=== PATIENT | female | born 1940 | race Caucasian/White ===

== ENCOUNTER 2017-05-25 09:48 | Day surgery (SDC) | payer MEDICARE, OTHER ==
[2017-05-25] MEDS ORDERED: Lactated Ringers 1,000 ML IV SCH (10:20)
[2017-05-25] MEDS ORDERED: Propofol 200 MG/20 ML SDV ONE ×2 (11:53→12:23)
[2017-05-25] MEDS ORDERED: Simethicone Drops 40 MG/0.6 ML 30 ML Bottle ONE (11:56)
[2017-05-25 13:00] VITALS: BP 145/61
--- NOTE | 2017-05-25 18:51 | OR ---
DATE OF SURGERY: 05/25/2017 REFERRING PROVIDER: Jennifer Su DO PRE-OPERATIVE DIAGNOSES: 1. Change in bowel habits with diarrhea for the past 2 months. The patient states symptoms are better the last few days. 2. Weight loss, unintentional. The patient did have positive lactoferrin and negative C. diff stool test. The patient's last colonoscopy in 2013 showed some diverticulosis. There is no family history of colon cancer. POST-OPERATIVE DIAGNOSES: 1. Normal appearing colon mucosa and mucosa of distal ileum. Random biopsies were taken from the distal ileum as well as randomly throughout the colon including the rectal area. 2. Mild left-sided diverticulosis, not acutely inflamed. 3. Mild internal hemorrhoids, not acutely inflamed. 4. Two small polyps removed. a. 2-mm polyp at 120 cm removed with cold forceps. b. 4-mm polyp at 85 cm removed with hot snare. PROCEDURE: Colonoscopy with polypectomy x2 (one using cold forceps, one using hot snare) and also random biopsies taken from distal ileum and randomly throughout the colon using cold forceps. SURGEON: Carlos Enrique Pugh M.D. ANESTHESIA: Monitored anesthesia care. BOWEL PREP: Good. Arcelia is a 77-year-old female who was brought to the endoscopy suite after discussing risks and benefits of the procedure. Informed consent was obtained for conscious sedation and colonoscopy with or without biopsy and/or polypectomy. We also discussed possibility of missed lesions. Pre-procedure exam was unremarkable. IV, oxygen, and monitors were placed. The patient was placed in the left lateral decubitus position. Sedation was administered and a digital rectal exam was performed and unremarkable except for some mild external hemorrhoidal skin tags, though not acutely inflamed. Colonoscope was passed into the rectum and slowly advanced all the way to the cecum. Cecum was viewed and photographed. Ileocecal valve was intubated and distal ileum appeared normal. Cold biopsy x2 bites taken from the distal ileum and sent for path. The colonoscope was slowly withdrawn and the mucosa was closely observed in a direct circumferential manner. Random biopsies were taken from the right colon, transverse colon, descending colon, sigmoid colon, and rectal areas. The ascending colon was remarkable for 2-mm polyp at 120 cm, removed with cold forceps. The transverse colon was remarkable for 4-mm polyp at 85 cm, removed with hot snare. The descending colon and sigmoid colon did reveal mild-to- moderate diverticulosis, not acutely inflamed. Retroflexion was performed and rectal mucosa was remarkable for some mild internal hemorrhoids. Scope was removed. The patient tolerated the procedure well. The patient was monitored until that baseline status. Discharge instructions were reviewed and the patient was discharged in good condition. COMPLICATIONS: None. TOTAL TIME: 32 minutes. ESTIMATED BLOOD LOSS: 1-2 mL. RECOMMENDATIONS/FOLLOW-UP: We will await results of the path report to determine ideal followup interval and the need for any further evaluation and/or treatment. I would like to kindly thank Jennifer Su DO for this referral. DMB: 05/25/2017 12:49:01 MODL: 05/25/2017 18:44:21 /[id number]
[2017-05-26] MEDS ORDERED: Lactated Ringers 1,000 ML IV SCH (06:00)
== END 2017-05-25 14:06 | disposition home or self-care (01) ==
LOC: VM.SDS 09:48
PROVIDERS: ATTEND Family Medicine
DX: K52.832 Lymphocytic colitis (principal); K63.5 Polyp of colon; K57.30 Diverticulosis of large intestine without perforation or abscess without bleeding; K64.8 Other hemorrhoids; K64.4 Residual hemorrhoidal skin tags; E87.6 Hypokalemia; J45.40 Moderate persistent asthma, uncomplicated; F33.0 Major depressive disorder, recurrent, mild; E78.5 Hyperlipidemia, unspecified; K21.9 Gastro-esophageal reflux disease without esophagitis; F41.1 Generalized anxiety disorder; Z79.82 Long term (current) use of aspirin; Z79.899 Other long term (current) drug therapy; Z88.0 Allergy status to penicillin; Z88.1 Allergy status to other antibiotic agents; Z88.2 Allergy status to sulfonamides; Z91.040 Latex allergy status; Z88.8 Allergy status to other drugs, medicaments and biological substances; Z90.49 Acquired absence of other specified parts of digestive tract
CPT/HCPCS: 00811; J2704; J7120

== ENCOUNTER 2021-07-19 19:25 | Emergency (ER) | payer MEDICARE, OTHER ==
[2021-07-19 20:33] LABS: CHLORIDE,CL 104 mmol/L (98-107); SODIUM,NA 137 mmol/L (136-145)
[2021-07-19 20:35] LABS: ANION GAP 13.1 mmol/L (5-15)
[2021-07-19] MEDS ORDERED: Take Home: Ondansetron 4 MG Tab.DIS, 5 Tab Pack PO ONE (20:45)
[2021-07-19 23:22] VITALS: BP 147/72; PULSE 73
== END 2021-07-19 21:15 | disposition home or self-care (01) ==
LOC: VM.ED 19:25
DX: K52.9 Noninfective gastroenteritis and colitis, unspecified (principal); E78.00 Pure hypercholesterolemia, unspecified; K21.9 Gastro-esophageal reflux disease without esophagitis; I25.10 Atherosclerotic heart disease of native coronary artery without angina pectoris; Z79.82 Long term (current) use of aspirin; Z79.899 Other long term (current) drug therapy; Z88.8 Allergy status to other drugs, medicaments and biological substances; Z88.2 Allergy status to sulfonamides
CPT/HCPCS: 36415; 80053; 85007; 85027; 99284; Q0162

== ENCOUNTER 2021-09-14 08:12 | Emergency (ER) | payer MEDICARE, OTHER ==
[2021-09-14 08:48] VITALS: BP 127/63; PULSE 65
[2021-09-14 08:53] LABS: CHLORIDE,CL 104 mmol/L (98-107); SODIUM,NA 141 mmol/L (136-145)
[2021-09-14 08:54] LABS: ESTIMATED GFR 48
== END 2021-09-14 09:28 | disposition home or self-care (01) ==
LOC: VM.ED 08:12
DX: R07.89 Other chest pain (principal); I25.10 Atherosclerotic heart disease of native coronary artery without angina pectoris; E78.00 Pure hypercholesterolemia, unspecified; Z79.82 Long term (current) use of aspirin; Z79.899 Other long term (current) drug therapy; Z88.0 Allergy status to penicillin; Z88.2 Allergy status to sulfonamides; Z88.1 Allergy status to other antibiotic agents
CPT/HCPCS: 71046; 80053; 82550; 83615; 84484; 85025; 86140; 93005; 99285-25

== ENCOUNTER 2022-09-22 01:28 | Emergency (ER) | payer MEDICARE, OTHER ==
[2022-09-22] MEDS ORDERED: Ondansetron 4 MG/2 ML SDV IVPUSH ONE (01:41)
[2022-09-22 02:00] LABS: BASOPHILS PERCENT AUTO 0.2 % (0.2-1.2); EOSINOPHILS ABSOLUTE AUTO 0.1 x10^3/uL (0.0-0.5); EOSINOPHILS PERCENT AUTO 1.1 % (0.0-4.0); HEMATOCRIT 28.2 % (33.0-47.0); HEMOGLOBIN 9.8 g/dL (12.0-16.0); LYMPHOCYTES ABSOLUTE AUTO 0.6 x10^3/uL (1.0-4.8); LYMPHOCYTES PERCENT AUTO 14.3 % (25.0-50.0); MEAN CORPUSCULAR HEMOGLOBIN 35.4 pg (26.0-32.0); MEAN CORPUSCULAR HGB CONC 34.8 g/dL (32.0-36.0); MEAN CORPUSCULAR VOLUME 101.8 fL (78.0-93.0); MONOCYTES ABSOLUTE AUTO 0.6 x10^3/uL (0.0-0.8); MONOCYTES PERCENT AUTO 13.1 % (2.0-11.0); NEUTROPHILS ABSOLUTE AUTO 3.2 x10^3/uL (1.8-7.7); NEUTROPHILS PERCENT AUTO 71.3 % (50.0-80.0); PLATELET COUNT,PLT 183 x10^3/uL (130-400); RED BLOOD CELL COUNT 2.77 x10^6/uL (4.00-5.50); WHITE BLOOD CELL COUNT,WBC 4.4 x10^3/uL (4.0-10.0)
[2022-09-22 02:19] LABS: PROTHROMBIN TIME 10.7 SEC (9.5-12.2); PTT,PARTIAL THROMBOPLSTIN TIME 21.6 SEC (23.6-33.6)
[2022-09-22 02:21] LABS: A/G RATIO 1.52; ALANINE AMINOTRANSFERASE,ALT 38 U/L (14-59); ALBUMIN 3.2 g/dL (3.4-5.0); ALKALINE PHOSPHATASE 76 U/L (46-116); AMYLASE 124 U/L (25-115); ASPARTATE AMNIOTRANSFERASE,AST 26 U/L (15-37); BILIRUBIN TOTAL 0.4 mg/dL (0.2-1.0); BLOOD UREA NITROGEN,BUN 23 mg/dL (7-18); CALCIUM 9.4 mg/dL (8.5-10.1); CARBON DIOXIDE,CO2 30 mmol/L (21-32); CHLORIDE,CL 105 mmol/L (98-107); CREATININE 0.9 mg/dL (0.55-1.02); GLUCOSE RANDOM 114 mg/dL (70-99); LIPASE 364 U/L (73-393); MAGNESIUM 1.8 mg/dL (1.8-2.4); POTASSIUM,K 3.7 mmol/L (3.5-5.1); PROTEIN TOTAL,TP 5.3 g/dL (6.4-8.2); SODIUM,NA 144 mmol/L (136-145)
[2022-09-22 02:24] LABS: ANION GAP 12.7 mmol/L (5-15); ESTIMATED GFR 64 mL/min (>=60); LACTIC ACID 1.1 mmol/L (0.4-2.0)
[2022-09-22] MEDS ORDERED: Metoclopramide 10 MG/2 ML SDV IVPUSH ONE (02:34)
[2022-09-22] MEDS ORDERED: Take Home: Ondansetron 4 MG Tab.DIS, 5 Tab Pack PO ONE (02:53)
[2022-09-22 03:41] VITALS: BP 143/80; PULSE 86
== END 2022-09-22 03:17 | disposition home or self-care (01) ==
LOC: VM.ED 01:28
DX: R11.2 Nausea with vomiting, unspecified (principal); R53.83 Other fatigue; I25.10 Atherosclerotic heart disease of native coronary artery without angina pectoris; E78.00 Pure hypercholesterolemia, unspecified; J45.909 Unspecified asthma, uncomplicated; K21.9 Gastro-esophageal reflux disease without esophagitis; Z90.49 Acquired absence of other specified parts of digestive tract; Z88.1 Allergy status to other antibiotic agents; Z88.0 Allergy status to penicillin; Z91.040 Latex allergy status; Z88.2 Allergy status to sulfonamides; Z91.048 Other nonmedicinal substance allergy status; Z79.82 Long term (current) use of aspirin; Z79.899 Other long term (current) drug therapy
CPT/HCPCS: 36415; 80053; 82150; 83605; 83690; 83735; 85025; 85610; 85730; 96374; 96375; 99284; 99284-25; J2405; J2765; Q0162

== ENCOUNTER 2022-09-26 12:24 | Inpatient (IN) | payer MEDICARE, OTHER ==
[2022-09-26] MEDS ORDERED: Iopamidol 612 MG/ML 100 ML Bottle IVPUSH ONE (12:45)
[2022-09-26] MEDS ORDERED: Lactated Ringers 1,000 ML IV ONE (12:47)
[2022-09-26 12:49] LABS: BASOPHILS PERCENT AUTO 0.2 % (0.2-1.2); EOSINOPHILS ABSOLUTE AUTO 0.1 x10^3/uL (0.0-0.5); EOSINOPHILS PERCENT AUTO 1.7 % (0.0-4.0); HEMATOCRIT 27.3 % (33.0-47.0); HEMOGLOBIN 9.5 g/dL (12.0-16.0); IMMATURE GRAN ABSOLUTE AUTO 0.01 x10^3/uL (0.00-0.07); LYMPHOCYTES ABSOLUTE AUTO 0.9 x10^3/uL (1.0-4.8); MEAN CORPUSCULAR HEMOGLOBIN 35.6 pg (26.0-32.0); MEAN CORPUSCULAR HGB CONC 34.8 g/dL (32.0-36.0); MEAN CORPUSCULAR VOLUME 102.2 fL (78.0-93.0); MONOCYTES ABSOLUTE AUTO 0.4 x10^3/uL (0.0-0.8); MONOCYTES PERCENT AUTO 9.9 % (2.0-11.0); NEUTROPHILS ABSOLUTE AUTO 2.8 x10^3/uL (1.8-7.7); PLATELET COUNT,PLT 198 x10^3/uL (130-400); RED BLOOD CELL COUNT 2.67 x10^6/uL (4.00-5.50); WHITE BLOOD CELL COUNT,WBC 4.1 x10^3/uL (4.0-10.0)
[2022-09-26 13:20] LABS: A/G RATIO 1.45; ALANINE AMINOTRANSFERASE,ALT 34 U/L (14-59); ALBUMIN 2.9 g/dL (3.4-5.0); ALKALINE PHOSPHATASE 71 U/L (46-116); ASPARTATE AMNIOTRANSFERASE,AST 20 U/L (15-37); BILIRUBIN TOTAL 0.6 mg/dL (0.2-1.0); BLOOD UREA NITROGEN,BUN 25 mg/dL (7-18); C-REACTIVE PROTEIN 0.3 mg/dL (<=0.9); CALCIUM 8.1 mg/dL (8.5-10.1); CARBON DIOXIDE,CO2 22 mmol/L (21-32); CHLORIDE,CL 105 mmol/L (98-107); CREATININE 0.7 mg/dL (0.55-1.02); GLUCOSE RANDOM 79 mg/dL (70-99); LIPASE 44 U/L (73-393); POTASSIUM,K 3.8 mmol/L (3.5-5.1); PROTEIN TOTAL,TP 4.9 g/dL (6.4-8.2); SODIUM,NA 142 mmol/L (136-145)
[2022-09-26 13:21] LABS: ANION GAP 18.8 mmol/L (5-15); ESTIMATED GFR 87 mL/min (>=60)
[2022-09-26 17:19] LABS: APPEARANCE,URINE CLEAR (CLEAR); BILIRUBIN,URINE MODERATE (NEGATIVE); COLOR,URINE YELLOW (YELLOW); GLUCOSE,URINE NEGATIVE (NEGATIVE); KETONES,URINE 80 mg/dL (NEGATIVE); LEUKOCYTE ESTERASE,URINE NEGATIVE (NEGATIVE); NITRITE,URINE NEGATIVE (NEGATIVE); OCCULT BLOOD,URINE NEGATIVE (NEGATIVE); PH,URINE 5.5 (5.0-8.0); PROTEIN,URINE 100 mg/dL (NEGATIVE)
[2022-09-26 17:20] LABS: BACTERIA,URINE RARE /HPF (NOT SEEN); HYALINE CASTS,URINE FEW; MUCUS,URINE FEW /LPF (NOT SEEN); RBC,URINE 0-5 /HPF (NOT SEEN); SQUAMOUS EPITHELIAL CELLS,UR OCCASIONAL /HPF (NOT SEEN); WBC,URINE 0-5 /HPF (NOT SEEN)
[2022-09-26] MEDS ORDERED: Albuterol HFA 18 Gm Inhaler INH PRN (18:05)
[2022-09-26] MEDS ORDERED: Triamcinolone Acetonide 0.1% Crm 15 GM Tube TOP PRN (18:05)
[2022-09-26] MEDS ORDERED: Acetaminophen 325 MG Tab PO PRN (18:11)
[2022-09-26] MEDS: Polyethylene Glycol 3350 Powder 17 GM Packet PO SCH ×5 (19:58→22:45)
[2022-09-26] MEDS: Ondansetron 4 MG Tab.DIS PO PRN (20:00)
[2022-09-26] MEDS: hydrALAZINE 20 MG/ML SDV IVPUSH PRN (20:01)
[2022-09-26] MEDS: Sodium Chloride 0.9% 1,000 ML IV SCH (20:12)
[2022-09-26] MEDS: Sodium Phosphate,Monobasic/Sodium Phosphate,Dibasic Enema 133 ML Bottle RECTAL SCH (20:40)
[2022-09-26] MEDS: Enoxaparin 40 MG/0.4 ML Syringe SUBCUT SCH (21:12)
[2022-09-26] MEDS: Docusate Sodium 100 MG Cap PO PRN (21:13)
[2022-09-26] MEDS: busPIRone 15 MG Tab PO SCH (21:13)
[2022-09-26] MEDS: Celecoxib 100 MG Cap PO SCH (21:13)
[2022-09-26] MEDS: Fluticasone Propionate Nasal Spray 9.9 ML BOTTLE NASBOTH SCH (21:14)
[2022-09-27] MEDS: Ondansetron 4 MG Tab.DIS PO PRN ×2 (05:19→20:57)
[2022-09-27] MEDS: Sodium Phosphate,Monobasic/Sodium Phosphate,Dibasic Enema 133 ML Bottle RECTAL SCH (05:39)
[2022-09-27] MEDS: hydrALAZINE 20 MG/ML SDV IVPUSH PRN ×2 (05:50→18:26)
[2022-09-27 06:57] LABS: HEMATOCRIT 29.2 % (33.0-47.0); HEMOGLOBIN 10.1 g/dL (12.0-16.0); MEAN CORPUSCULAR HEMOGLOBIN 35.1 pg (26.0-32.0); MEAN CORPUSCULAR HGB CONC 34.6 g/dL (32.0-36.0); MEAN CORPUSCULAR VOLUME 101.4 fL (78.0-93.0); RED BLOOD CELL COUNT 2.88 x10^6/uL (4.00-5.50); WHITE BLOOD CELL COUNT,WBC 5.4 x10^3/uL (4.0-10.0)
[2022-09-27] MEDS: Pantoprazole 40 MG Tab.CR PO SCH (06:57)
[2022-09-27 07:18] LABS: A/G RATIO 1.26; ALBUMIN 2.9 g/dL (3.4-5.0); ANION GAP 15.3 mmol/L (5-15); BILIRUBIN TOTAL 0.5 mg/dL (0.2-1.0); CALCIUM 8.1 mg/dL (8.5-10.1); CREATININE 0.6 mg/dL (0.55-1.02); EST CRCL DRUG DOSING (CG) 60.06 mL/min; POTASSIUM,K 3.3 mmol/L (3.5-5.1); PROTEIN TOTAL,TP 5.2 g/dL (6.4-8.2)
[2022-09-27] MEDS ORDERED: Flumazenil 0.1 MG/ML 5 ML MDV IVPUSH PRN (07:59)
[2022-09-27] MEDS: Metoclopramide 10 MG/2 ML SDV IVPUSH PRN ×2 (10:19→18:24)
[2022-09-27] MEDS: buPROPion 150 MG Tab.ER PO SCH (10:28)
[2022-09-27] MEDS: Montelukast 10 MG Tab PO SCH (10:32)
[2022-09-27] MEDS: Citalopram 20 MG Tab PO SCH (10:32)
[2022-09-27] MEDS: Aspirin 81 MG Tab.EC PO SCH (10:32)
[2022-09-27] MEDS: Docusate Sodium 100 MG Cap PO PRN ×2 (10:33→20:58)
[2022-09-27] MEDS: busPIRone 15 MG Tab PO SCH ×2 (10:33→20:58)
[2022-09-27] MEDS: Cyanocobalamin (Vitamin B12) 1,000 MCG Tab PO SCH ×2 (10:33)
[2022-09-27] MEDS: Fluticasone Propionate Nasal Spray 9.9 ML BOTTLE NASBOTH SCH ×2 (10:34→20:59)
[2022-09-27] MEDS: Celecoxib 100 MG Cap PO SCH ×3 (10:34→21:03)
[2022-09-27] MEDS: Sodium Chloride 0.9% 1,000 ML IV SCH ×2 (10:35→22:29)
[2022-09-27] MEDS: Polyethylene Glycol 3350 Powder 17 GM Packet PO SCH ×6 (10:56→19:53)
[2022-09-27] MEDS: LORazepam 2 MG/ML SDV IVPUSH PRN (14:25)
[2022-09-27] MEDS: Mineral Oil 133 ML BOTTLE RECTAL SCH (18:23)
[2022-09-27] MEDS: Enoxaparin 40 MG/0.4 ML Syringe SUBCUT SCH (20:57)
[2022-09-28] MEDS: LORazepam 2 MG/ML SDV IVPUSH PRN (02:20)
[2022-09-28] MEDS: hydrALAZINE 20 MG/ML SDV IVPUSH PRN ×3 (06:44→20:11)
[2022-09-28] MEDS: Mineral Oil 133 ML BOTTLE RECTAL SCH ×2 (06:44→18:52)
[2022-09-28] MEDS: Pantoprazole 40 MG Tab.CR PO SCH (06:44)
[2022-09-28 07:05] LABS: A/G RATIO 1.53; ALBUMIN 2.6 g/dL (3.4-5.0); ANION GAP 13.2 mmol/L (5-15); BILIRUBIN TOTAL 0.3 mg/dL (0.2-1.0); CALCIUM 7.6 mg/dL (8.5-10.1); CREATININE 0.6 mg/dL (0.55-1.02); EST CRCL DRUG DOSING (CG) 61.77 mL/min; POTASSIUM,K 3.2 mmol/L (3.5-5.1); PROTEIN TOTAL,TP 4.3 g/dL (6.4-8.2)
[2022-09-28] MEDS ORDERED: Potassium Bicarbonate/Cit Ac 10 MEQ Effervescent Tab PO ONE (08:45)
[2022-09-28] MEDS: busPIRone 15 MG Tab PO SCH ×2 (10:31→21:46)
[2022-09-28] MEDS: Montelukast 10 MG Tab PO SCH (10:31)
[2022-09-28] MEDS: Celecoxib 100 MG Cap PO SCH ×2 (10:31→21:46)
[2022-09-28] MEDS: Fluticasone Propionate Nasal Spray 9.9 ML BOTTLE NASBOTH SCH ×2 (10:32→21:46)
[2022-09-28] MEDS: Citalopram 20 MG Tab PO SCH (10:32)
[2022-09-28] MEDS: Cyanocobalamin (Vitamin B12) 1,000 MCG Tab PO SCH (10:32)
[2022-09-28] MEDS: Lactulose Soln 10 GM/15 ML 30 ML UD Cup PO SCH ×2 (10:32→21:46)
[2022-09-28] MEDS: buPROPion 150 MG Tab.ER PO SCH (10:32)
[2022-09-28] MEDS: Aspirin 81 MG Tab.EC PO SCH (10:32)
[2022-09-28] MEDS: Sodium Chloride 0.9% 1,000 ML IV SCH (15:01)
[2022-09-28] MEDS: Ondansetron 4 MG/2 ML SDV IVPUSH PRN ×2 (15:04→20:10)
[2022-09-28] MEDS: Metoclopramide 10 MG/2 ML SDV IVPUSH PRN ×2 (16:07→22:01)
[2022-09-28] MEDS: Lactated Ringers 1,000 ML IV SCH (20:10)
[2022-09-28] MEDS: Enoxaparin 40 MG/0.4 ML Syringe SUBCUT SCH (22:01)
[2022-09-29] MEDS: hydrALAZINE 20 MG/ML SDV IVPUSH PRN ×3 (00:01→20:24)
[2022-09-29] MEDS: Ondansetron 4 MG/2 ML SDV IVPUSH PRN (00:01)
[2022-09-29] MEDS ORDERED: Acetaminophen 650 MG Supp RECTAL ONE (00:53)
[2022-09-29] MEDS: Lactated Ringers 1,000 ML IV SCH (03:52)
[2022-09-29] MEDS: Mineral Oil 133 ML BOTTLE RECTAL SCH ×2 (05:32→18:00)
[2022-09-29] MEDS: Pantoprazole 40 MG Tab.CR PO SCH (06:24)
[2022-09-29 07:20] LABS: A/G RATIO 1.53; ALBUMIN 2.6 g/dL (3.4-5.0); ANION GAP 14.2 mmol/L (5-15); BILIRUBIN TOTAL 0.3 mg/dL (0.2-1.0); CALCIUM 8.2 mg/dL (8.5-10.1); CREATININE 0.8 mg/dL (0.55-1.02); EST CRCL DRUG DOSING (CG) 45.81 mL/min; POTASSIUM,K 3.2 mmol/L (3.5-5.1); PROTEIN TOTAL,TP 4.3 g/dL (6.4-8.2)
[2022-09-29] MEDS: LORazepam 2 MG/ML SDV IVPUSH PRN ×3 (09:30→22:55)
[2022-09-29] MEDS: D5 1/2 NS w/ 20 mEq/L KCl 1,000 ML IV SCH ×2 (09:39→18:02)
[2022-09-29] MEDS: Fluticasone Propionate Nasal Spray 9.9 ML BOTTLE NASBOTH SCH ×2 (11:36→22:33)
[2022-09-29] MEDS ORDERED: Acetaminophen 650 MG Supp RECTAL PRN (12:33)
[2022-09-29] MEDS: Enoxaparin 40 MG/0.4 ML Syringe SUBCUT SCH (21:18)
[2022-09-29] MEDS ORDERED: Labetalol 20 MG/4 ML Syringe IVPUSH ONE (21:27)
[2022-09-30] MEDS: hydrALAZINE 20 MG/ML SDV IVPUSH PRN ×4 (04:47→20:57)
[2022-09-30] MEDS: D5 1/2 NS w/ 20 mEq/L KCl 1,000 ML IV SCH ×2 (05:54→21:03)
[2022-09-30] MEDS: Pantoprazole 40 MG Tab.CR PO SCH ×2 (06:17→06:19)
[2022-09-30] MEDS: Mineral Oil 133 ML BOTTLE RECTAL SCH ×2 (06:18→18:06)
[2022-09-30 06:47] LABS: HEMATOCRIT 29.7 % (33.0-47.0); HEMOGLOBIN 9.9 g/dL (12.0-16.0); MEAN CORPUSCULAR HEMOGLOBIN 35.1 pg (26.0-32.0); MEAN CORPUSCULAR HGB CONC 33.3 g/dL (32.0-36.0); MEAN CORPUSCULAR VOLUME 105.3 fL (78.0-93.0); RED BLOOD CELL COUNT 2.82 x10^6/uL (4.00-5.50); WHITE BLOOD CELL COUNT,WBC 6.9 x10^3/uL (4.0-10.0)
[2022-09-30 07:12] LABS: A/G RATIO 1.25; ALBUMIN 2.5 g/dL (3.4-5.0); ANION GAP 11.6 mmol/L (5-15); BILIRUBIN TOTAL 0.5 mg/dL (0.2-1.0); CALCIUM 7.9 mg/dL (8.5-10.1); CREATININE 0.6 mg/dL (0.55-1.02); EST CRCL DRUG DOSING (CG) 61.92 mL/min; POTASSIUM,K 3.6 mmol/L (3.5-5.1); PROTEIN TOTAL,TP 4.5 g/dL (6.4-8.2)
[2022-09-30] MEDS: Metoclopramide 10 MG/2 ML SDV IVPUSH SCH ×3 (09:16→18:38)
[2022-09-30] MEDS: Fluticasone Propionate Nasal Spray 9.9 ML BOTTLE NASBOTH SCH ×2 (09:23→20:53)
[2022-09-30] MEDS ORDERED: Magnesium Sulfate/Water 2 GM in Premix Bag 1 BAG IV ONE (12:15)
[2022-09-30] MEDS: Lactulose Soln 10 GM/15 ML 15 ML UD Cup PO SCH ×2 (13:45→20:53)
[2022-09-30] MEDS: LORazepam 2 MG/ML SDV IVPUSH PRN ×2 (15:55→22:15)
[2022-09-30] MEDS: Enoxaparin 40 MG/0.4 ML Syringe SUBCUT SCH (21:57)
[2022-10-01] MEDS: Metoclopramide 10 MG/2 ML SDV IVPUSH SCH ×4 (01:51→18:28)
[2022-10-01] MEDS: Pantoprazole 40 MG Tab.CR PO SCH (06:24)
[2022-10-01] MEDS: Mineral Oil 133 ML BOTTLE RECTAL SCH ×2 (06:25→18:27)
[2022-10-01 08:32] LABS: A/G RATIO 1.25; ALBUMIN 2.5 g/dL (3.4-5.0); BILIRUBIN TOTAL 0.6 mg/dL (0.2-1.0); C-REACTIVE PROTEIN 2.02 mg/dL (<=0.30); CALCIUM 7.9 mg/dL (8.5-10.1); CREATININE 0.6 mg/dL (0.55-1.02); EST CRCL DRUG DOSING (CG) 62.66 mL/min; POTASSIUM,K 3.6 mmol/L (3.5-5.1); PROTEIN TOTAL,TP 4.5 g/dL (6.4-8.2)
[2022-10-01 08:33] LABS: ANION GAP 10.6 mmol/L (5-15)
[2022-10-01] MEDS: Fluticasone Propionate Nasal Spray 9.9 ML BOTTLE NASBOTH SCH ×2 (09:13→21:41)
[2022-10-01] MEDS: Lactulose Soln 10 GM/15 ML 15 ML UD Cup PO SCH ×2 (09:13→21:41)
[2022-10-01] MEDS: Magnesium Chloride 64 MG Tab.ER PO SCH (09:13)
[2022-10-01] MEDS: Lisinopril 5 MG Tab PO SCH (09:14)
[2022-10-01] MEDS: LORazepam 2 MG/ML SDV IVPUSH PRN ×3 (09:14→22:12)
[2022-10-01] MEDS ORDERED: Mineral Oil 133 ML BOTTLE RECTAL ONE (10:05)
[2022-10-01] MEDS: D5 1/2 NS w/ 20 mEq/L KCl 1,000 ML IV SCH (12:36)
[2022-10-01] MEDS: Ondansetron 4 MG/2 ML SDV IVPUSH PRN (19:47)
[2022-10-01] MEDS: hydrALAZINE 20 MG/ML SDV IVPUSH PRN (20:15)
[2022-10-01] MEDS: Enoxaparin 40 MG/0.4 ML Syringe SUBCUT SCH (21:41)
[2022-10-02] MEDS: Metoclopramide 10 MG/2 ML SDV IVPUSH SCH ×4 (00:11→19:03)
[2022-10-02] MEDS: Ondansetron 4 MG/2 ML SDV IVPUSH PRN (02:22)
[2022-10-02] MEDS: LORazepam 2 MG/ML SDV IVPUSH PRN ×2 (02:30→17:46)
[2022-10-02] MEDS: D5 1/2 NS w/ 20 mEq/L KCl 1,000 ML IV SCH ×2 (02:41→16:40)
[2022-10-02] MEDS: hydrALAZINE 20 MG/ML SDV IVPUSH PRN ×2 (05:31→21:07)
[2022-10-02] MEDS: Mineral Oil 133 ML BOTTLE RECTAL SCH ×2 (05:36→17:56)
[2022-10-02] MEDS: Pantoprazole 40 MG Tab.CR PO SCH (07:40)
[2022-10-02 08:21] LABS: BASOPHILS PERCENT AUTO 0.1 % (0.2-1.2); EOSINOPHILS PERCENT AUTO 0.1 % (0.0-4.0); HEMATOCRIT 31.9 % (33.0-47.0); HEMOGLOBIN 10.8 g/dL (12.0-16.0); IMMATURE GRAN ABSOLUTE AUTO 0.02 x10^3/uL (0.00-0.07); LYMPHOCYTES ABSOLUTE AUTO 0.6 x10^3/uL (1.0-4.8); LYMPHOCYTES PERCENT AUTO 6.3 % (25.0-50.0); MEAN CORPUSCULAR HGB CONC 33.9 g/dL (32.0-36.0); MEAN CORPUSCULAR VOLUME 103.2 fL (78.0-93.0); MONOCYTES ABSOLUTE AUTO 0.8 x10^3/uL (0.0-0.8); MONOCYTES PERCENT AUTO 7.8 % (2.0-11.0); NEUTROPHILS ABSOLUTE AUTO 8.2 x10^3/uL (1.8-7.7); NEUTROPHILS PERCENT AUTO 85.5 % (50.0-80.0); PLATELET COUNT,PLT 203 x10^3/uL (130-400); RED BLOOD CELL COUNT 3.09 x10^6/uL (4.00-5.50); WHITE BLOOD CELL COUNT,WBC 9.6 x10^3/uL (4.0-10.0)
[2022-10-02 08:35] LABS: CALCIUM 8.2 mg/dL (8.5-10.1); CREATININE 0.7 mg/dL (0.55-1.02); EST CRCL DRUG DOSING (CG) 54.75 mL/min; POTASSIUM,K 3.8 mmol/L (3.5-5.1)
[2022-10-02 08:36] LABS: ANION GAP 13.8 mmol/L (5-15)
[2022-10-02] MEDS: Lactulose Soln 10 GM/15 ML 15 ML UD Cup PO SCH ×2 (10:40→21:01)
[2022-10-02] MEDS: Magnesium Chloride 64 MG Tab.ER PO SCH (10:40)
[2022-10-02] MEDS: Lisinopril 5 MG Tab PO SCH (10:40)
[2022-10-02] MEDS: Fluticasone Propionate Nasal Spray 9.9 ML BOTTLE NASBOTH SCH ×2 (10:54→21:01)
[2022-10-02 20:32] LABS: APPEARANCE,URINE CLEAR (CLEAR); BILIRUBIN,URINE NEGATIVE (NEGATIVE); COLOR,URINE YELLOW (YELLOW); GLUCOSE,URINE NEGATIVE (NEGATIVE); KETONES,URINE NEGATIVE (NEGATIVE); LEUKOCYTE ESTERASE,URINE NEGATIVE (NEGATIVE); NITRITE,URINE NEGATIVE (NEGATIVE); OCCULT BLOOD,URINE TRACE-INTACT (NEGATIVE); PROTEIN,URINE TRACE mg/dL (NEGATIVE); UROBILINOGEN,URINE 0.2 EU/dL (0.2)
[2022-10-02 20:37] LABS: BACTERIA,URINE NOT SEEN /HPF (NOT SEEN); MUCUS,URINE OCCASIONAL /LPF (NOT SEEN); RBC,URINE 0-5 /HPF (NOT SEEN); SQUAMOUS EPITHELIAL CELLS,UR RARE /HPF (NOT SEEN); WBC,URINE 0-5 /HPF (NOT SEEN)
[2022-10-02] MEDS: Enoxaparin 40 MG/0.4 ML Syringe SUBCUT SCH (22:00)
[2022-10-03] MEDS: Metoclopramide 10 MG/2 ML SDV IVPUSH SCH ×4 (01:06→18:03)
[2022-10-03] MEDS: D5 1/2 NS w/ 20 mEq/L KCl 1,000 ML IV SCH (05:33)
[2022-10-03] MEDS: Mineral Oil 133 ML BOTTLE RECTAL SCH ×2 (05:34→18:13)
[2022-10-03] MEDS: Pantoprazole 40 MG Tab.CR PO SCH (06:04)
[2022-10-03 07:00] LABS: BASOPHILS PERCENT AUTO 0.1 % (0.2-1.2); EOSINOPHILS ABSOLUTE AUTO 0.1 x10^3/uL (0.0-0.5); EOSINOPHILS PERCENT AUTO 0.8 % (0.0-4.0); HEMATOCRIT 32.2 % (33.0-47.0); HEMOGLOBIN 10.6 g/dL (12.0-16.0); IMMATURE GRAN ABSOLUTE AUTO 0.02 x10^3/uL (0.00-0.07); LYMPHOCYTES ABSOLUTE AUTO 0.8 x10^3/uL (1.0-4.8); LYMPHOCYTES PERCENT AUTO 10.9 % (25.0-50.0); MEAN CORPUSCULAR HEMOGLOBIN 34.6 pg (26.0-32.0); MEAN CORPUSCULAR HGB CONC 32.9 g/dL (32.0-36.0); MEAN CORPUSCULAR VOLUME 105.2 fL (78.0-93.0); MONOCYTES ABSOLUTE AUTO 0.9 x10^3/uL (0.0-0.8); MONOCYTES PERCENT AUTO 11.7 % (2.0-11.0); NEUTROPHILS ABSOLUTE AUTO 5.8 x10^3/uL (1.8-7.7); NEUTROPHILS PERCENT AUTO 76.2 % (50.0-80.0); PLATELET COUNT,PLT 193 x10^3/uL (130-400); RED BLOOD CELL COUNT 3.06 x10^6/uL (4.00-5.50); WHITE BLOOD CELL COUNT,WBC 7.5 x10^3/uL (4.0-10.0)
[2022-10-03 07:04] LABS: A/G RATIO 1.19; ALBUMIN 2.5 g/dL (3.4-5.0); BILIRUBIN TOTAL 0.4 mg/dL (0.2-1.0); C-REACTIVE PROTEIN 1.19 mg/dL (<=0.30); CALCIUM 8.3 mg/dL (8.5-10.1); CREATININE 0.7 mg/dL (0.55-1.02); EST CRCL DRUG DOSING (CG) 51.9 mL/min; MAGNESIUM 1.9 mg/dL (1.8-2.4); POTASSIUM,K 3.8 mmol/L (3.5-5.1); PROTEIN TOTAL,TP 4.6 g/dL (6.4-8.2)
[2022-10-03 07:07] LABS: ANION GAP 8.8 mmol/L (5-15)
[2022-10-03] MEDS ORDERED: Ondansetron 4 MG/2 ML SDV IVPUSH PRN (08:32)
[2022-10-03] MEDS: hydrALAZINE 20 MG/ML SDV IVPUSH PRN ×2 (09:27→18:05)
[2022-10-03] MEDS: Magnesium Chloride 64 MG Tab.ER PO SCH (09:30)
[2022-10-03] MEDS: Lisinopril 5 MG Tab PO SCH (09:30)
[2022-10-03] MEDS: Lactulose Soln 10 GM/15 ML 15 ML UD Cup PO SCH ×2 (09:30→20:49)
[2022-10-03] MEDS: Fluticasone Propionate Nasal Spray 9.9 ML BOTTLE NASBOTH SCH ×2 (09:31→20:59)
[2022-10-03] MEDS ORDERED: Furosemide 20 MG/2 ML VIAL IV SCH (15:15)
[2022-10-03] MEDS ORDERED: Iopamidol 612 MG/ML 30 ML SDV PO ONE (15:16)
[2022-10-03] MEDS ORDERED: Iopamidol 612 MG/ML 100 ML Bottle IVPUSH ONE (15:16)
[2022-10-03] MEDS: Mineral Oil/Petrolatum Ophth Oint 3.5 GM Tube EYEBOTH SCH ×2 (16:00→20:53)
[2022-10-03] MEDS: Ketotifen 0.025% Ophth Soln 5 ML Bottle EYELF SCH ×2 (18:09→20:50)
[2022-10-03] MEDS: Enoxaparin 40 MG/0.4 ML Syringe SUBCUT SCH (20:49)
[2022-10-03] MEDS: LORazepam 2 MG/ML SDV IVPUSH PRN (23:01)
[2022-10-04] MEDS: Metoclopramide 10 MG/2 ML SDV IVPUSH SCH ×4 (01:05→19:29)
[2022-10-04] MEDS: Ondansetron 4 MG/2 ML SDV IVPUSH PRN ×2 (05:25→15:47)
[2022-10-04] MEDS: Pantoprazole 40 MG Tab.CR PO SCH (07:00)
[2022-10-04] MEDS: Mineral Oil 133 ML BOTTLE RECTAL SCH ×2 (07:01→19:27)
[2022-10-04 07:13] LABS: BASOPHILS PERCENT AUTO 0.4 % (0.2-1.2); EOSINOPHILS ABSOLUTE AUTO 0.1 x10^3/uL (0.0-0.5); EOSINOPHILS PERCENT AUTO 0.7 % (0.0-4.0); HEMATOCRIT 30.4 % (33.0-47.0); HEMOGLOBIN 10.2 g/dL (12.0-16.0); IMMATURE GRAN ABSOLUTE AUTO 0.02 x10^3/uL (0.00-0.07); LYMPHOCYTES ABSOLUTE AUTO 0.7 x10^3/uL (1.0-4.8); LYMPHOCYTES PERCENT AUTO 8.5 % (25.0-50.0); MEAN CORPUSCULAR HEMOGLOBIN 34.9 pg (26.0-32.0); MEAN CORPUSCULAR HGB CONC 33.6 g/dL (32.0-36.0); MEAN CORPUSCULAR VOLUME 104.1 fL (78.0-93.0); MONOCYTES PERCENT AUTO 12.2 % (2.0-11.0); NEUTROPHILS ABSOLUTE AUTO 6.4 x10^3/uL (1.8-7.7); PLATELET COUNT,PLT 189 x10^3/uL (130-400); RED BLOOD CELL COUNT 2.92 x10^6/uL (4.00-5.50); WHITE BLOOD CELL COUNT,WBC 8.2 x10^3/uL (4.0-10.0)
[2022-10-04 07:41] LABS: A/G RATIO 1.19; ALBUMIN 2.5 g/dL (3.4-5.0); BILIRUBIN TOTAL 0.5 mg/dL (0.2-1.0); CALCIUM 8.2 mg/dL (8.5-10.1); CREATININE 0.8 mg/dL (0.55-1.02); EST CRCL DRUG DOSING (CG) 45.3 mL/min; POTASSIUM,K 3.6 mmol/L (3.5-5.1); PROTEIN TOTAL,TP 4.6 g/dL (6.4-8.2)
[2022-10-04 07:51] LABS: ANION GAP 10.6 mmol/L (5-15)
[2022-10-04] MEDS: Lactulose Soln 10 GM/15 ML 15 ML UD Cup PO SCH ×2 (09:11→21:15)
[2022-10-04] MEDS: Lisinopril 5 MG Tab PO SCH ×2 (09:12→21:23)
[2022-10-04] MEDS: Furosemide 20 MG/2 ML VIAL IV SCH (09:13)
[2022-10-04] MEDS: Ketotifen 0.025% Ophth Soln 5 ML Bottle EYELF SCH ×2 (09:17→21:17)
[2022-10-04] MEDS: Mineral Oil/Petrolatum Ophth Oint 3.5 GM Tube EYEBOTH SCH ×3 (09:17→21:17)
[2022-10-04] MEDS: Magnesium Chloride 64 MG Tab.ER PO SCH (09:18)
[2022-10-04] MEDS: Fluticasone Propionate Nasal Spray 9.9 ML BOTTLE NASBOTH SCH ×2 (13:09→21:18)
[2022-10-04] MEDS ORDERED: buPROPion 150 MG Tab.ER PO SCH (16:45)
[2022-10-04] MEDS: busPIRone 15 MG Tab PO SCH ×2 (18:10→21:16)
[2022-10-04] MEDS: Citalopram 20 MG Tab PO SCH (18:10)
[2022-10-04] MEDS: Enoxaparin 40 MG/0.4 ML Syringe SUBCUT SCH (21:15)
[2022-10-05] MEDS: Metoclopramide 10 MG/2 ML SDV IVPUSH SCH ×3 (00:17→12:38)
[2022-10-05] MEDS: Pantoprazole 40 MG Tab.CR PO SCH (06:50)
[2022-10-05] MEDS: Mineral Oil 133 ML BOTTLE RECTAL SCH (06:50)
[2022-10-05 06:52] LABS: BASOPHILS PERCENT AUTO 0.2 % (0.2-1.2); EOSINOPHILS PERCENT AUTO 0.1 % (0.0-4.0); HEMATOCRIT 32.2 % (33.0-47.0); HEMOGLOBIN 10.9 g/dL (12.0-16.0); IMMATURE GRAN ABSOLUTE AUTO 0.03 x10^3/uL (0.00-0.07); LYMPHOCYTES ABSOLUTE AUTO 0.8 x10^3/uL (1.0-4.8); LYMPHOCYTES PERCENT AUTO 6.2 % (25.0-50.0); MEAN CORPUSCULAR HEMOGLOBIN 34.6 pg (26.0-32.0); MEAN CORPUSCULAR HGB CONC 33.9 g/dL (32.0-36.0); MEAN CORPUSCULAR VOLUME 102.2 fL (78.0-93.0); MONOCYTES ABSOLUTE AUTO 0.9 x10^3/uL (0.0-0.8); MONOCYTES PERCENT AUTO 7.3 % (2.0-11.0); NEUTROPHILS ABSOLUTE AUTO 10.9 x10^3/uL (1.8-7.7); PLATELET COUNT,PLT 268 x10^3/uL (130-400); RED BLOOD CELL COUNT 3.15 x10^6/uL (4.00-5.50); WHITE BLOOD CELL COUNT,WBC 12.7 x10^3/uL (4.0-10.0)
[2022-10-05 07:16] LABS: A/G RATIO 1.18; ALBUMIN 2.6 g/dL (3.4-5.0); ANION GAP 12.5 mmol/L (5-15); BILIRUBIN TOTAL 0.4 mg/dL (0.2-1.0); CALCIUM 8.5 mg/dL (8.5-10.1); CREATININE 0.9 mg/dL (0.55-1.02); EST CRCL DRUG DOSING (CG) 40.65 mL/min; POTASSIUM,K 3.5 mmol/L (3.5-5.1); PROTEIN TOTAL,TP 4.8 g/dL (6.4-8.2)
[2022-10-05] MEDS: Furosemide 20 MG/2 ML VIAL IV SCH (09:00)
[2022-10-05] MEDS ORDERED: Dextrose 5%-0.9% NaCl with KCl 1,000 ML IV SCH (09:00)
[2022-10-05] MEDS ORDERED: Clindamycin Phosphate in D5W 600 MG in Premix Bag 1 BAG IV SCH ×2 (09:00)
[2022-10-05] MEDS ORDERED: Sennosides/Docusate Sodium 50-8.6 MG Tab PO SCH (09:00)
[2022-10-05] MEDS ORDERED: Bisacodyl 5 MG Tab PO SCH ×2 (09:00)
[2022-10-05] MEDS ORDERED: Lactulose Soln 10 GM/15 ML 30 ML UD Cup PO SCH (09:30)
[2022-10-05] MEDS ORDERED: buPROPion 100 MG Tab PO SCH (10:00)
[2022-10-05] MEDS ORDERED: Lactulose Soln 10 GM/15 ML 30 ML UD Cup ONE (10:30)
[2022-10-05] MEDS: Fluticasone Propionate Nasal Spray 9.9 ML BOTTLE NASBOTH SCH (11:57)
[2022-10-05] MEDS: Ketotifen 0.025% Ophth Soln 5 ML Bottle EYELF SCH (11:58)
[2022-10-05] MEDS: Mineral Oil/Petrolatum Ophth Oint 3.5 GM Tube EYEBOTH SCH (11:58)
[2022-10-05] MEDS: Lisinopril 5 MG Tab PO SCH (12:46)
[2022-10-05] MEDS: Citalopram 20 MG Tab PO SCH (12:46)
[2022-10-05] MEDS: busPIRone 15 MG Tab PO SCH (12:46)
[2022-10-05] MEDS: Magnesium Chloride 64 MG Tab.ER PO SCH (12:46)
[2022-10-05 18:51] VITALS: PULSE 108
[2022-10-05 20:08] VITALS: BP 99/54
== END 2022-10-05 15:30 | disposition short-term general hospital (02) | DRG 388 ==
LOC: VM.ED 12:24 → VM.MS 15:51
PROVIDERS: ADMIT Nurse Practitioner Family; ATTEND Internal Medicine
DX: K56.41 Fecal impaction (principal); J96.01 Acute respiratory failure with hypoxia; K52.9 Noninfective gastroenteritis and colitis, unspecified; K56.7 Ileus, unspecified; E44.0 Moderate protein-calorie malnutrition; I10 Essential (primary) hypertension; F41.9 Anxiety disorder, unspecified; E86.0 Dehydration; F32.A Depression, unspecified; I25.10 Atherosclerotic heart disease of native coronary artery without angina pectoris; E78.00 Pure hypercholesterolemia, unspecified; K21.9 Gastro-esophageal reflux disease without esophagitis; Z79.82 Long term (current) use of aspirin; Z79.899 Other long term (current) drug therapy
CPT/HCPCS: 36415; 51702; 71045; 74018; 74019; 74176; 74177; 80048; 80053; 81001; 83690; 83735; 85025; 85027; 86140; 95851-GO; 96360; 96361; 97110-GP; 97162-GP; 97165-GO; 97530-GP; 99284; 99285-25; A9270-GY; C1758; J0360; J1650; J1940; J2060; J2405; J2765; J3475; J3480; J3490; J7030; J7120; Q9967